=== PATIENT | female | born 1975 | race Caucasian/White ===

== ENCOUNTER → 2021-12-17 | Outpatient (CLI) | payer BC ==
--- NOTE | 2021-12-17 20:40 | Diagnostic Imaging Report ---
Indication: Left breast mass. Sonographic interrogation of the area of lump left breast was performed. This corresponds to the 5:00 location, 1 to 2 cm from the nipple. There is a simple appearing cyst measuring 1.3 x 0.9 x 1.3 cm. No internal vascularity is seen. There is posterior acoustic enhancement. No other abnormalities are detected. IMPRESSION: BI-RADS Category 2 Simple cyst at the area of palpable abnormality at the 5:00 location of the left breast. No concerning sonographic finding is detected. ACR BI-RADS Category 2: Benign findings. Result letter will be mailed to the patient. Note: At least 10% of breast cancer is not imaged by mammography. Dictated by: Dictated on workstation # [id number]
== END ==
LOC: RAD 12:30
PROVIDERS: ATTEND Family Medicine
DX: N60.02 Solitary cyst of left breast (principal)

== ENCOUNTER → 2023-01-12 | Day surgery (SDC) | payer BC ==
[~2023-01-12] VITALS: Ht 154.9 cm; Wt 57.0 kg
[~2023-01-12] MED LIST: IRON SUCROSE 200 MG/10 ML VIAL IV ONE; IRON SUCROSE 200 MG/10 ML VIAL IV SCH
[2023-01-12 13:30] VITALS: BP 100/72
== END | disposition home or self-care (01) ==
LOC: SDC 13:01
PROVIDERS: ATTEND Family Medicine
DX: D50.8 Other iron deficiency anemias (principal); R53.83 Other fatigue
CPT/HCPCS: 96365